=== PATIENT | male | born 1990 | race African-American/Black ===

== ENCOUNTER 2016-08-19 14:48 | Emergency (ER) | payer OTHER ==
[~2016-08-19] VITALS: Ht 175.3 cm; Wt 102.9 kg
[~2016-08-19 14:48] MED LIST: MOTRIN800 MG PO
[2016-08-19] MEDS ORDERED: AUGMENTIN875 MG PO (16:10)
[2016-08-19 17:06] VITALS: BP 136/72
== END 2016-08-19 17:11 | disposition home or self-care (01) ==
LOC: EME 14:48
DX: S00.571A Other superficial bite of lip, initial encounter (principal); Z23 Encounter for immunization; W54.0XXA Bitten by dog, initial encounter
CPT/HCPCS: 99281; 99284

== ENCOUNTER 2017-07-13 15:29 | Inpatient (IN) | payer OTHER ==
[~2017-07-13] VITALS: Ht 177.8 cm; Wt 95.0 kg
[~2017-07-13 15:29] MED LIST changes: +AUGMENTIN875 MG PO
[2017-07-13 16:27] LABS: BASOPHIL (%) 0.5 % (0-1); BASOPHIL COUNT 0.1 K/uL (0-0.1); EOSINOPHIL (%) 0.5 % (0-5); EOSINOPHIL COUNT 0.1 K/uL (0-0.3); HEMATOCRIT 45.9 % (38.0-50.0); HEMOGLOBIN 15.6 G/DL (12.5-16.6); IMMATURE GRANULOCYTE (%) 0.4 % (0.0-0.7); LYMPHOCYTE (%) 15.8 % (15-42); LYMPHOCYTE COUNT 1.7 K/uL (1.0-2.8); MCH 30.4 PG (29.0-34.0); MCV 89.3 FL (86-99); MONOCYTE COUNT 0.7 K/uL (0-0.8); NEUTROPHIL (%) 76.8 % (45-76); NEUTROPHIL COUNT 8.4 K/uL (1.8-6.4); PLATELET COUNT 215 K/uL (156-360); RBC DIS.WIDTH-CV 12.7 % (11.8-14.6); RBC DIS.WIDTH-SD 41.9 % (39-53); RED BLOOD COUNT 5.14 M/uL (4.00-5.50); WHITE BLOOD COUNT 10.9 K/uL (4.1-10.2)
[2017-07-13 16:34] LABS: ALBUMIN 4.4 g/dL (3.2-4.8); CHLORIDE 107 mEq/L (99-109); POTASSIUM 4.1 mEq/L (3.7-5.4); SODIUM 141 mEq/L (136-147)
[2017-07-13 16:37] LABS: GLUCOSE 100 mg/dL (70-99); TOTAL PROTEIN 7.7 g/dL (6.4-8.3)
[2017-07-13 16:38] LABS: TOTAL BILIRUBIN 0.3 mg/dL (0.0-1.0)
[2017-07-13 16:39] LABS: SERUM ETHYL ALCOHOL < 10 mg/dL
[2017-07-13 16:40] LABS: CREATININE 1.1 mg/dL (0.6-1.3); GFR ESTIMATE (CALCULATED) > 59 mL/min/ (58.99-99999)
[2017-07-13 16:41] LABS: ALKALINE PHOSPHATASE 88 IU/L (3-129)
[2017-07-13 16:42] LABS: AST (GOT) 22 IU/L (2-34); UREA NITROGEN (BUN) 8 mg/dL (9-23)
[2017-07-13 16:44] LABS: ACETAMINOPHEN (TYLENOL) < 10 mcg/mL (10-30); ALT (GPT) 25 IU/L (3-49); SALICYLATE < 5.0 MG/DL (15-30)
[2017-07-13 17:18] LABS: AMPHETAMINE NEGATIVE (500 ng/mL); BARBITURATES NEGATIVE (200 ng/mL); BENZODIAZEPINES NEGATIVE (150 ng/mL); BUPRENORPHINE NEGATIVE (10 ng/mL); COCAINE NEGATIVE (150 ng/mL); METHADONE NEGATIVE (200 ng/mL); METHAMPHETAMINE NEGATIVE (500 ng/mL); OPIATES (MORPHINE) NEGATIVE (100 ng/mL); OXYCODONE NEGATIVE (100 ng/mL); PHENCYCLIDINE NEGATIVE (25 ng/mL); PROPOXYPHENE NEGATIVE (300 ng/mL); THC CANNABINOIDS PRESUMPTIVE POSITIVE (50 ng/mL); TRICYCLIC ANTIDEPRESSANTS NEGATIVE (300 ng/mL)
[2017-07-13 19:18] VITALS: BP 144/86
[2017-07-14 07:36] VITALS: BP 105/53
[2017-07-14 15:29] VITALS: BP 123/58
[2017-07-15 07:41] VITALS: BP 128/61
[2017-07-15 15:21] VITALS: BP 144/85
[2017-07-15 17:25] VITALS: BP 133/81
[2017-07-16 08:25] VITALS: BP 125/69
[2017-07-16] MEDS ORDERED: TRAZODONE HCL50 MG PO (08:51)
[2017-07-16] MEDS ORDERED: MINIPRESS2 MG PO (08:51)
[2017-07-16] MEDS ORDERED: ZOLOFT100 MG PO (08:51)
== END 2017-07-16 10:01 | disposition home or self-care (01) | DRG 885 ==
LOC: EME 15:29 → 1WEST 18:32 → EDOF 18:32 → 1WEST 18:32 → ENRESERV 19:14 → 1WEST 19:14
PROVIDERS: Emergency Medicine
DX: F33.1 Major depressive disorder, recurrent, moderate (principal); R45.851 Suicidal ideations; R44.0 Auditory hallucinations; J45.909 Unspecified asthma, uncomplicated; G47.00 Insomnia, unspecified; F43.12 Post-traumatic stress disorder, chronic; F17.210 Nicotine dependence, cigarettes, uncomplicated; F10.20 Alcohol dependence, uncomplicated; F12.10 Cannabis abuse, uncomplicated; Y90.9 Presence of alcohol in blood, level not specified; R45.850 Homicidal ideations; F41.9 Anxiety disorder, unspecified; Z56.0 Unemployment, unspecified
CPT/HCPCS: 80053; 84999; 85025; 90839; 99281; 99284; G0480